=== PATIENT | female | born 1965 | race Caucasian/White ===

== ENCOUNTER 2017-04-30 08:23 | Day surgery (SDC) | payer BC ==
[~2017-04-30] VITALS: Ht 167.6 cm; Wt 90.7 kg
[~2017-04-30 08:23] MED LIST: CYMBALTA60 MG; CYMBALTA60 MG PO; ESTRACE2 MG; ESTRACE2 MG PO; FIBER SELECT G1 EACH PO; FIBER170 GM; GABAPENTIN600 MG PO; LACTULOSE10 GM/15 M PO; MAXZIDE 37.5 MG-1 EA PO; MS CONTIN15 MG PO; NEXIUM40 M1 PO; OMEPRAZOLE20 M1 PO; PERCOCET 10-321 EACH PO; PERCOCET 5-3251 EACH; PROMETHAZINE-COD5 ML PO; SUMATRIPTAN SUC50 MG PO; TRANSDERM-SCOP1 EA TD; VALIUM5 MG PO; ZOFRAN ODT4 MG PO
--- NOTE | 2017-04-30 09:38 | NUR ---
04/30/17 0938 Eryn Garza 0923 RESP EVEN AND UNLABORED. PT ASLEEP. 0933 PT WOKE UP, O2 SAT 98%, O2 REMOVED. PT REORIENTED TO PACU.
--- NOTE | 2017-04-30 18:42 | OR ---
[facility] [place] [facility] [address] [place], [place] [address] Signed DATE OF OPERATION: SURGEON: Chris Washburn MD PREOPERATIVE DIAGNOSIS: Screening. POSTOPERATIVE DIAGNOSIS: Minimal internal hemorrhoids. PROCEDURE: Colonoscopy without biopsy. ESTIMATED BLOOD LOSS: None. INDICATIONS: Aby is a 52-year-old female, who was asked to see me for her initial screening colonoscopy. She has lower GI complaints and there is no family history of colon cancer or polyps. However, she does have significant medical history requiring chronic opiates for chronic pain issues involving her neck, her back, and her sacroiliac joint. She is using morphine and oxycodone each day along with her Cymbalta and her gabapentin. Consequently, we needed anesthesia provider to help us with increased monitoring sedation with propofol. In the office, I gave Aby a pamphlet on colonoscopy and we looked at that together in detail. She understands the nature of the test along with the risk including, but not limited to, gas bloating, crampy abdominal pain, bleeding, perforation, requiring surgery, and missed diagnosis. She also understands the need for the IV conscious sedation as mentioned above. She had expressed understanding and wished to proceed. PROCEDURE NOTE: Aby was taken into our endoscopy suite and placed in the left lateral decubitus position. She was given IV sedation with propofol per nurse parachute cushion installer. A digital rectal exam was performed and this was unremarkable. The adult colonoscope was then introduced and advanced all around into the cecum under direct visualization of camera without difficulty. Her prep was average. The scope was then slowly withdrawn. We found no pathology throughout her entire colon or rectum. Upon retroflexion of the scope, she has tiny internal hemorrhoid columns. After this, the gas was suctioned out and the colonoscope removed. Aby tolerated her procedure quite well. RECOMMENDATIONS: Electronically Signed By: CHRIS WASHBURN MD 04/30/17 1842 PATIENT NAME: ABY AREVALOA OPERATIVE REPORT DATE OF : 63 PHYSICIAN: CHRIS WASHBURN MD REPORT #: [id number] REPORT IS CONFIDENTIAL AND NOT TO BE RELEASED WITHOUT AUTHORIZATION [address] [address] Signed Aby can follow up in my office in 10 years for repeat colonoscopy. MD LUZMA Gilmore/NEDA /[id number] cc: Juan Ruiz DO Electronically Signed By: CHRIS WASHBURN MD 04/30/17 1842 PATIENT NAME: OLGA AREVALOMumtaz ZEPEDA OPERATIVE REPORT DATE OF : 63 PHYSICIAN: CHRIS WASHBURN MD REPORT #: [id number] REPORT IS CONFIDENTIAL AND NOT TO BE RELEASED WITHOUT AUTHORIZATION
== END 2017-04-30 10:09 | disposition home or self-care (01) ==
LOC: DS 08:23 → OPS 08:23
PROVIDERS: Colon & Rectal Surgery
PROC: 0DJD8ZZ Inspection of Lower Intestinal Tract, Via Natural or Artificial Opening Endoscopic (ICD-10-PCS; principal; 2017-04-30 09:00)
DX: Z12.11 Encounter for screening for malignant neoplasm of colon (principal); K64.8 Other hemorrhoids; F32.9 Major depressive disorder, single episode, unspecified; F11.20 Opioid dependence, uncomplicated; M51.26 Other intervertebral disc displacement, lumbar region; M43.02 Spondylolysis, cervical region; M46.1 Sacroiliitis, not elsewhere classified; F17.210 Nicotine dependence, cigarettes, uncomplicated; Z90.49 Acquired absence of other specified parts of digestive tract; Z88.1 Allergy status to other antibiotic agents; Z88.8 Allergy status to other drugs, medicaments and biological substances; Z79.899 Other long term (current) drug therapy; Z90.710 Acquired absence of both cervix and uterus; Z98.890 Other specified postprocedural states
CPT/HCPCS: 99156; 99157; J2250; J2405; J2550; J2704; J3010; J7120

== ENCOUNTER 2018-02-17 09:04 | Day surgery (SDC) | payer MEDICARE ==
[~2018-02-17] VITALS: Ht 167.6 cm; Wt 72.6 kg
--- NOTE | 2018-02-17 10:57 | NUR ---
PATIENT TO SURGERY
[2018-02-17] MEDS ORDERED: TYLENOL325 MG PO (11:46)
[2018-02-17] MEDS ORDERED: MOTRIN IB200 MG PO (11:46)
--- NOTE | 2018-02-17 11:52 | NUR ---
02/17/18 1151 Elsa Polk 1131 PT ARRIVED IN PACU UNRESPONSIVE TO VERBAL/TACTILE STIMULI. 1140 PT RESPONSIVE. C/O FEELING COLD. WARM BLANKET AND SANJAY PAWS ATTACHED TO PT. 1150 DR AT BEDSIDE TALKING TO PT. NO C/O NAUSEA.
--- NOTE | 2018-02-17 12:40 | NUR ---
PATIENT BACK FROM SURGERY AT 1230. PATIENT UP TO VOID WITH 1 ASSIST TO BATHROOM TO VOID 400ML CLEAR YELLOW URINE. PATIENT DENIES NAUSEA, DENIES PAIN. MEPILEX AND TEGADERM DRESSING TO RIGHT BREAST IS CDI. PATIENT IS SLEEPY, 99% ON ROOM AIR. MOM IN ROOM WITH PATIENT.
--- NOTE | 2018-02-17 13:58 | NUR ---
3604 PATIENT GIVEN WHEELCHAIR RIDE TO OUTSIDE. MOM IS DRIVING PATIENT HOME.
--- NOTE | 2018-02-19 08:37 | OR ---
[facility] [address] [place], [place] [address] Signed DATE OF OPERATION: 02/17/2018 SURGEON: Cb Uriostegui MD PREOPERATIVE DIAGNOSES: 1. Enlarged right nipple, consideration for Paget disease. 2. History of bilateral subglandular breast augmentation. POSTOPERATIVE DIAGNOSES: 1. Enlarged right nipple, consideration for Paget disease. 2. History of bilateral subglandular breast augmentation. PROCEDURE: Partial excision of right nipple with nipploplasty. ANESTHESIA: General LMA, Becca Ferguson CRNA and local 5 mL of 0.25% Marcaine with epinephrine. INDICATIONS: This 53-year-old white woman is a patient of Dr. De La Rosa and SHAISTA Hopson, formally Dr. Ruiz. She has undergone a subglandular breast implant bilaterally for cosmetic benefit a number of years ago, but has noted enlargement of the right nipple on the right side itself. The areola itself is normal. She has had no excoriation of the nipple, but marked enlargement of it in comparison to the left side. It is firm and probably four times larger than the other side. She has had no nipple discharge or excoriation. It has been somewhat uncomfortable. She has no family history of breast cancer. Mammogram performed showed no parenchymal reasonable remaining breast tissue, that is considered BI-RADS category 4 based on the nipple findings itself. She is admitted at this time to undergo excision of portion of the nipple with reduction in the nipple size and cosmetic closure. Dominant goal of therapy is diagnosis of possible Paget disease of the nipple. She understands well the risks of bleeding, infection, cosmetic deformity, and so forth and wished to proceed. FINDINGS: Right nipple was enlarged, but without excoriation. A wedge excision of the nipple proper was undertaken which showed fleshy material of the nipple itself as well as a thick dark yellow liquid like material. Closure was performed in a cosmetically optimal way reducing the size of the nipple to be comparable to the left side. Final pathology is pending. Electronically Signed By: CB URIOSTEGUI MD 02/19/18 0837 PATIENT NAME: VENITA AREVALO OPERATIVE REPORT DATE OF : 63 REPORT #: [id number] PHYSICIAN: CB URIOSTEGUI MD PCP: DARY MIXON REPORT IS CONFIDENTIAL AND NOT TO BE RELEASED WITHOUT AUTHORIZATION [facility] [address] [place], [place] [address] Signed DESCRIPTION OF PROCEDURE: The patient was brought to the operating room, given a general A type anesthetic. Special care was taken to avoid postoperative nausea given her prior history related to general anesthetic. The right breast was prepared with a chlorhexidine solution and draped sterilely. Preoperative antibiotic Ancef was given. Photographs were taken. A wedge excision of nipple proper was undertaken extending from approximately the 10 o'clock position to the 8 o'clock position. Full-thickness excision was undertaken. Upon entry into the nipple parenchyma, a thick deep yellow liquid was noted. This was excised fully down to parenchyma, but not so deepest to jeopardize underlying breast implant in anyway. Electrocautery was used for hemostasis. The wound was then closed with interrupted 2-0 Vicryl and Steri-Strips and Mepilex silver sponge dressing and an OpSite was applied. The patient tolerated the procedure well and excellent cosmesis is noted. MD ARPITA Tolentino/MENDOZAL /[id number] cc: Kyra De La Rosa MD Copies: KYRA DE LA ROSA MD ~ Electronically Signed By: CB URIOSTEGUI MD 02/19/18 0837 PATIENT NAME: VENITA AREVALO OPERATIVE REPORT DATE OF : 63 REPORT #: [id number] PHYSICIAN: CB URIOSTEGUI MD PCP: DARY MIXON REPORT IS CONFIDENTIAL AND NOT TO BE RELEASED WITHOUT AUTHORIZATION
== END 2018-02-17 13:45 | disposition home or self-care (01) ==
LOC: DS 09:04
PROVIDERS: Surgery
PROC: 0HQW0ZZ Repair Right Nipple, Open Approach (ICD-10-PCS; principal; 2018-02-17 11:15)
DX: N62 Hypertrophy of breast (principal); N64.89 Other specified disorders of breast; F31.9 Bipolar disorder, unspecified; K21.0 Gastro-esophageal reflux disease with esophagitis; G47.30 Sleep apnea, unspecified; G89.29 Other chronic pain; Z88.8 Allergy status to other drugs, medicaments and biological substances; Z88.5 Allergy status to narcotic agent; Z99.89 Dependence on other enabling machines and devices; Z98.82 Breast implant status; Z79.899 Other long term (current) drug therapy; Z79.4 Long term (current) use of insulin
CPT/HCPCS: 88305; 88342; J0131; J0690; J1100; J1200; J1644; J1885; J2250; J2405; J2550; J2704; J7120

== ENCOUNTER 2018-09-03 07:10 | Day surgery (SDC) | payer MEDICARE ==
[~2018-09-03] VITALS: Ht 167.6 cm; Wt 74.8 kg
[~2018-09-03 07:10] MED LIST changes: +MOTRIN IB200 MG PO; +TYLENOL325 MG PO
--- NOTE | 2018-09-03 08:18 | NUR ---
PT NEEDED TO HAVE HOB ADJUSTED BECAUSE OF BACK AND NECK ISSUES. ADJUSTED, PT MUCH MORE RELAXED. SHE IS ALERT, ORIENTED AND SUPPORTED BY HER .PT DID MENTION THAT THIS WILL BE SURGERY #17. HER COMMENTED THAT SHE IS RUNNING OUT OF BODY PARTS TO WORK ON! JULIO CESAR CHEUNG IN TO PREP PT FOR SURGERY, I EXTENDED A BLESSING, PT THANKED ME FOR COMING IN. WILL FOLLOW NEEDED 3
--- NOTE | 2018-09-03 10:05 | NUR ---
09/03/18 1005 Massiel Castillo 0959 PATIENT ARRIVES TO PACU SLEEPING, OPENS EYES WITH VERBAL STIMULI. RESP EVEN AND UNLABORED, MASK AT 6 LITERS. 1003 PATIENT AWAKE OFF/ON, MASK OFF, ROOM AIR SATS 99%. RESP EVEN AND UNLABORED. DENIES PAIN OR NAUSEA.
[2018-09-03] MEDS ORDERED: IBUPROFEN600 MG PO (10:13)
[2018-09-03] MEDS ORDERED: TYLENOL325 MG PO (10:13)
--- NOTE | 2018-09-04 14:25 | OR ---
[facility] [address] [place], [place] [address] Signed DATE OF OPERATION: 09/03/2018 SURGEON: Cb Uriostegui MD PREOPERATIVE DIAGNOSIS: Right carpal tunnel syndrome. POSTOPERATIVE DIAGNOSIS: Right carpal tunnel syndrome. PROCEDURE PERFORMED: Right carpal tunnel release. ANESTHESIA: Maria Luisa block with sedation (Janice Calhoun CRNA). 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 She is a patient of Dr. De La Rosa. She has numerous medical problems including fibromyalgia and other issues including bipolar disorder. She was noted to have bilateral carpal tunnel symptoms more than 2 years ago and has had various issues with cervical spine problems. She had anterior and posterior cervical fusions by Dr. Andrews in 2014. She underwent formal neurologic testing in [place] two years ago by Dr. Machuca and the report reviewed confirmed bilateral carpal tunnel syndrome at the wrist (median neuropathy at the wrist) performed on April 09, 2016. Her symptoms of hand numbness on the left and right sides have been progressive including the symptoms typical of carpal tunnel syndrome. Her right hand is worse than the left. She is right-hand dominant. She is admitted at this time to undergo right carpal tunnel release. She understands the risks of bleeding, infection, and most importantly failure to cure her symptoms. Notably, her Tinel sign and Phalen's test are positive. FINDINGS: The transverse carpal ligament was easily identified and transected in the usual way to the palmar fascia and proximally to the mid wrist crease. This was under direct visualization with open technique. The underlying median nerve had mild chronic inflammation. No sign of neoplasm or other problems. There were no complications. DESCRIPTION OF PROCEDURE: The patient was brought to the operating room and given a [place] block type anesthetic on Electronically Signed By: CB URIOSTEGUI MD 09/04/18 1425 PATIENT NAME: VENITA AREVALO OPERATIVE REPORT DATE OF : 63 REPORT #: [id number] PHYSICIAN: CB URIOSTEGUI MD PCP: KYRA DE LA ROSA MD REPORT IS CONFIDENTIAL AND NOT TO BE RELEASED WITHOUT AUTHORIZATION [facility] [address] [place], [place] [address] Signed the right side after Esmarch bandage exsanguination of the right arm. The Maria Luisa block appeared to be quite effective. Sedation was additionally given. The right hand and forearm were prepared with a chlorhexidine solution and draped sterilely. A lead finger retractors was used after placing a rolled blue towel behind the wrist for good extension of the wrist. A small incision was made ulnar to the thenar crease. Dissection was carried through the dermis in an avascular plane using sharp dissection with a #15 blade. The palmaris fascia was incised, ultimately identifying the transverse carpal ligament. It was dissected further with 15 blade under direct visualization with loupe magnification and headlight illumination. Once a small portion was incised, a hemostat was placed beneath it distally and was transected onto the palmar fascia. Hemostat was removed and replaced proximally, and under direct visualization, it was further divided with a #15 blade and ultimately tenotomy scissors up to the mid transverse wrist crease. Examination in the carpal canal showed no sign of tumor or other problems. The nerve appeared to have chronic inflammatory change in a mild way. Irrigation was undertaken and a small amount of Marcaine 0.25% with epinephrine was injected in the area of the incision in the skin and the ligament itself. The wound was reapproximated with interrupted 2-0 nylon suture. A Xeroform gauze was applied as was a plain gauze and a flexor wrap from mid forearm to the palm with subsequent application of a cock-up wrist splint with Velcro in conclusion with a 4 inch Mike wrap. Pressure was applied to the operative site. The tourniquet was withdrawn and pressure applied to that site until rubor returned and receded from the fingers. She was then taken to recovery room in good condition having suffered no complication. Sponge, needle, and instrument counts reported as correct x3. Tourniquet time was 23 minutes. Cb Uriostegui MD /MODL /[id number] cc: Kyra De La Rosa MD Copies: KYRA DE LA ROSA MD Electronically Signed By: CB URIOSTEGUI MD 09/04/18 1425 PATIENT NAME: VENITA AREVALO OPERATIVE REPORT DATE OF : 63 REPORT #: [id number] PHYSICIAN: CB URIOSTEGUI MD PCP: KYRA DE LA ROSA MD REPORT IS CONFIDENTIAL AND NOT TO BE RELEASED WITHOUT AUTHORIZATION [address] [address] Signed ~ Electronically Signed By: CB URIOSTEGUI MD 09/04/18 1425 PATIENT NAME: VENITA AREVALO OPERATIVE REPORT DATE OF : 63 REPORT #: [id number] PHYSICIAN: CB URIOSTEGUI MD PCP: KYRA DE LA ROSA MD REPORT IS CONFIDENTIAL AND NOT TO BE RELEASED WITHOUT AUTHORIZATION
== END 2018-09-03 10:40 | disposition home or self-care (01) ==
LOC: DS 07:10 → OPS 07:10 → DS 08:45 → OPS 08:45
PROVIDERS: Surgery
PROC: 01N50ZZ Release Median Nerve, Open Approach (ICD-10-PCS; principal; 2018-09-03 08:45)
DX: G56.01 Carpal tunnel syndrome, right upper limb (principal); G89.29 Other chronic pain; K21.9 Gastro-esophageal reflux disease without esophagitis; G56.03 Carpal tunnel syndrome, bilateral upper limbs; F17.210 Nicotine dependence, cigarettes, uncomplicated; F31.9 Bipolar disorder, unspecified; K21.0 Gastro-esophageal reflux disease with esophagitis; D24.9 Benign neoplasm of unspecified breast; Z98.82 Breast implant status; Z88.8 Allergy status to other drugs, medicaments and biological substances; Z91.040 Latex allergy status; Z88.5 Allergy status to narcotic agent
CPT/HCPCS: J0690; J1100; J2405; J2704; J7120

== ENCOUNTER 2021-01-27 19:42 | Emergency (ER) | payer MEDICARE ==
[~2021-01-27] VITALS: Ht 167.6 cm; Wt 85.3 kg
[~2021-01-27 19:42] MED LIST changes: +IBUPROFEN600 MG PO; +OXYCODON-ACETA1 EAC2 PO; +ZOFRAN8 MG PO
--- OUTSIDE RECORDS SUMMARY | 2021-01-27 19:44 | XMS ---
PreManage Notification: VENITA AREVALO Security Cosmetic Maker Events No recent Security Events currently on file CRITERIA MET - PDMP CARE PROVIDERS EVE SANTANA [facility] Current PHONE: [phone] [facility] has no Care Guidelines for this patient. EBenjamin VISIT COUNT (12 MO.) 1 YENY Sam TOTAL 1 NOTE: Visits indicate total known visits. ED/UCC VISIT TRACKING (12 MO.) 01/27/2021 19:43 YENY Flores OR TYPE: Emergency COMPLAINT: - NAUSEA,UNABLE TO EAT INPATIENT VISIT TRACKING (12 MO.) No inpatient visits to display in this time frame [email or web address]
[2021-01-27] MEDS ORDERED: PROMETHAZINE HC25 M1 PO (22:14)
== END 2021-01-27 23:45 | disposition home or self-care (01) ==
LOC: ED 19:42
DX: U07.1 COVID-19 (principal); F17.200 Nicotine dependence, unspecified, uncomplicated; Z88.5 Allergy status to narcotic agent; Z91.040 Latex allergy status; Z88.8 Allergy status to other drugs, medicaments and biological substances; Z88.1 Allergy status to other antibiotic agents; Z79.899 Other long term (current) drug therapy
CPT/HCPCS: 71046; 80053; 81001; 85025; 96374; 99283-25; C9803; J2550; M0243; Q0244; U0003

== ENCOUNTER 2022-04-12 09:46 | Emergency (ER) | payer MEDICARE, BC ==
[~2022-04-12] VITALS: Ht 167.6 cm; Wt 85.3 kg
[~2022-04-12 09:46] MED LIST changes: +PROMETHAZINE HC25 M1 PO
--- OUTSIDE RECORDS SUMMARY | 2022-04-12 09:52 | XMS ---
PreManage Notification: ABY AREVALO Security Athletic Events Scorer Events No recent Security Events currently on file CRITERIA MET - MONIKP CARE PROVIDERS DARRELL ZARATE Nurse Practitioner: Family 01/29/2021-Current PHONE: [phone] Aby Pollard-C Nurse Practitioner: Current PHONE: [phone] EVE SANTANA [facility] Current PHONE: Unknown [facility] has no Care Guidelines for this patient. E.D. VISIT COUNT (12 MO.) 1 YENY Sam TOTAL 1 NOTE: Visits indicate total known visits. ED/UCC VISIT TRACKING (12 MO.) 04/12/2022 09:46 YENY Flores OR TYPE: Emergency COMPLAINT: - COLD SYMPTOMS INPATIENT VISIT TRACKING (12 MO.) No inpatient visits to display in this time frame [email or web address]
[2022-04-12] MEDS ORDERED: IPRAT-ALBUT 0.5-3 ML INH (11:13)
[2022-04-12] MEDS ORDERED: PREDNISONE20 MG PO (11:13)
[2022-04-12] MEDS ORDERED: DOXYCYCLINE HY100 MG PO (11:13)
== END 2022-04-12 11:32 | disposition home or self-care (01) ==
LOC: ED 09:46
DX: J44.1 Chronic obstructive pulmonary disease with (acute) exacerbation (principal); Z91.040 Latex allergy status; Z88.8 Allergy status to other drugs, medicaments and biological substances; Z79.899 Other long term (current) drug therapy
CPT/HCPCS: 71046; 94640; 99285-25; J7512